=== PATIENT | male | born 1960 | race Caucasian/White ===

== ENCOUNTER → 2019-10-31 | Outpatient (CLI) | payer OTHER | END | disposition home or self-care (01) | LOC: CARD 14:41 | PROVIDERS: ATTEND Thoracic Surgery (Cardiothoracic Vascular Surgery) | DX: D38.1 Neoplasm of uncertain behavior of trachea, bronchus and lung (principal); J98.4 Other disorders of lung | CPT/HCPCS: 94060; 94726; 94729 ==

== ENCOUNTER 2019-11-07 10:03 | Inpatient (IN) | payer OTHER ==
[~2019-11-07] VITALS: Ht 175.3 cm; Wt 97.1 kg
[2019-11-07] MEDS ORDERED: LACTATED RINGERS 1,000 ML IV SCH ×2 (10:34→14:23)
[2019-11-07] MEDS ORDERED: VARE1TAB21 PO (10:37)
[2019-11-07] MEDS ORDERED: ASPRIN PO (10:37)
[2019-11-07 11:00] LABS: BASOPHILS # (AUTO) 0.11 x10^3/uL (0-0.1); BASOPHILS % (AUTO) 1 % (0-1); EOSINOPHILS % (AUTO) 14 % (1-7); LYMPHOCYTES % (AUTO) 21 % (22-44); MD NO; MEAN CORPUSCULAR HEMOGLOBIN 32.4 pg (27.5-34.5); MEAN CORPUSCULAR HGB CONC 33.3 g/dL (33.2-36.2); MEAN CORPUSCULAR VOLUME 97.2 fL (81-97); MEAN PLATELET VOLUME 7.9 fL (7.4-10.4); MONOCYTES # (AUTO) 0.67 x10^3/uL (0.2-0.8); MONOCYTES % (AUTO) 7 % (2-9); NEUTROPHILS # (AUTO) 5.54 x10^3/uL (1.8-6.8); NEUTROPHILS % (AUTO) 57 % (42-75); PLATELET COUNT 242 x10^3/uL (130-400); RED BLOOD COUNT 4.86 x10^6/uL (4.38-5.82); RED CELL DISTRIBUTION WIDTH 14.1 % (9.4-14.8)
[2019-11-07 11:08] LABS: ALBUMIN 3.4 g/dL (3.4-5.0); ANION GAP 7 mmol/L (5-15); CALCIUM 8.7 mg/dL (8.5-10.1); CHLORIDE 105 mmol/L (98-107)
[2019-11-07 11:12] LABS: ALANINE AMINOTRANSFERASE 69 U/L (12-78); ALKALINE PHOSPHATASE 106 U/L (45-117); BILIRUBIN,TOTAL 0.6 mg/dL (0.2-1.0); CREATININE 1.04 mg/dL (0.7-1.3); TOTAL PROTEIN 6.7 g/dL (6.4-8.2)
[2019-11-07] MEDS ORDERED: BUPIVACAINE/PF 0.5% ONE (12:07)
[2019-11-07] MEDS ORDERED: EPINEPHRINE 1 MG/ML, 1ML ONE (12:07)
[2019-11-07] MEDS ORDERED: MIDAZOLAM 1 MG/ML, 2ML ONE (12:29)
[2019-11-07] MEDS ORDERED: FENTANYL PF 250 MCG/5ML ONE ×2 (12:30→13:24)
[2019-11-07] MEDS ORDERED: LIDOCAINE PF 2%, 5ML ONE (12:35)
[2019-11-07] MEDS ORDERED: GLYCOPYRROLATE 0.2MG/1ML, 5ML ONE (13:24)
[2019-11-07] MEDS ORDERED: ROCURONIUM 10MG/ML,5ML ONE (13:24)
[2019-11-07] MEDS ORDERED: ONDANSETRON 2MG/ML, 2ML ONE (13:24)
[2019-11-07] MEDS ORDERED: DEXAMETHASONE 4 MG/ML, 1ML ONE (13:24)
[2019-11-07] MEDS ORDERED: NEOSTIGMINE 1 MG/ML, 10ML ONE (13:24)
[2019-11-07] MEDS ORDERED: SUCCINYLCHOLINE 20 MG/ML, 10ML ONE (13:24)
[2019-11-07] MEDS ORDERED: SUGAMMADEX 200 MG/2 ML IVPush ONE (13:24)
[2019-11-07] MEDS ORDERED: CEFAZOLIN 1,000 MG ONE (13:24)
[2019-11-07] MEDS ORDERED: PROPOFOL 10 MG/ML, 20ML ONE (13:24)
[2019-11-07] MEDS ORDERED: ACETAMINOPHEN 325 MG TABLET PO PRN (13:30)
[2019-11-07] MEDS ORDERED: MEPERIDINE/PF 25MG/ML,1ML IVPush PRN (13:30)
[2019-11-07] MEDS ORDERED: LORazepam 2 MG/ML, 1ML IVPush PRN ×2 (13:30→14:30)
[2019-11-07] MEDS ORDERED: PROMETHAZINE 25 MG SUPP PR PRN (13:30)
[2019-11-07] MEDS ORDERED: PROMETHAZINE 25 MG/ML, 1ML IV PRN (13:30)
[2019-11-07] MEDS ORDERED: ONDANSETRON ODT 8 MG PO PRN (13:30)
[2019-11-07] MEDS ORDERED: HYDROmorphone 2 MG/ML, 1ML IVPush PRN (13:30)
[2019-11-07] MEDS ORDERED: OXYcodone 5 MG/5 ML ORAL.SOL UDC PO PRN (13:30)
[2019-11-07] MEDS ORDERED: ONDANSETRON 2MG/ML, 2ML IV PRN (13:30)
[2019-11-07] MEDS ORDERED: HALOPERIDOL 5 MG/ML IV PRN (13:30)
[2019-11-07] MEDS ORDERED: FENTANYL PF 100 MCG/2ML IV PRN (13:30)
[2019-11-07] MEDS: FAMOTIDINE 20 MG/2 ML IVPush SCH (14:30)
[2019-11-07] MEDS ORDERED: DIPHENHYDRAMINE 25 MG CAPSULE PO PRN (14:30)
[2019-11-07] MEDS ORDERED: hydrALAzine 20 MG/ML, 1ML IVPush PRN (14:30)
[2019-11-07] MEDS ORDERED: ONDANSETRON 2MG/ML, 2ML IVPush PRN (14:30)
[2019-11-07] MEDS: FAMOTIDINE 20 MG TABLET PO SCH (14:30)
[2019-11-07] MEDS ORDERED: ENALAPRILAT 1.25 MG/ML, 2ML IVPush PRN (14:30)
[2019-11-07] MEDS ORDERED: LORazepam 1MG TABLET PO PRN (14:30)
[2019-11-07 15:45] VITALS: BP 126/84
[2019-11-07] MEDS: HYDROcodone/APAP 5/325 TABLET PO PRN ×2 (18:47→23:07)
[2019-11-07 20:00] VITALS: BP 113/77
[2019-11-07] MEDS: morphine SULFATE 10 MG/ML, 1ML IVPush PRN ×3 (20:10→22:26)
[2019-11-07 23:04] VITALS: BP 109/75
[2019-11-08] MEDS: FAMOTIDINE 20 MG TABLET PO SCH ×2 (02:30→15:13)
[2019-11-08] MEDS: FAMOTIDINE 20 MG/2 ML IVPush SCH ×2 (02:39→14:30)
[2019-11-08 04:00] VITALS: BP 115/79
[2019-11-08 06:56] LABS: ANION GAP 6 mmol/L (5-15); CALCIUM 8.3 mg/dL (8.5-10.1); CHLORIDE 102 mmol/L (98-107)
[2019-11-08 06:58] LABS: CREATININE 0.87 mg/dL (0.7-1.3)
[2019-11-08] MEDS: HYDROcodone/APAP 5/325 TABLET PO PRN ×5 (07:10→23:32)
[2019-11-08 08:00] VITALS: BP 109/72
[2019-11-08 09:14] LABS: MEAN CORPUSCULAR HEMOGLOBIN 32.3 pg (27.5-34.5); MEAN CORPUSCULAR HGB CONC 32.9 g/dL (33.2-36.2); MEAN CORPUSCULAR VOLUME 98.1 fL (81-97); MEAN PLATELET VOLUME 8.5 fL (7.4-10.4); PLATELET COUNT 231 x10^3/uL (130-400); RED BLOOD COUNT 4.38 x10^6/uL (4.38-5.82); RED CELL DISTRIBUTION WIDTH 14.1 % (9.4-14.8)
[2019-11-08] MEDS: ENOXAPARIN 40 MG/0.4 ML SQ SCH (09:47)
[2019-11-08 10:09] LABS: BASOPHILS # (AUTO) 0.05 x10^3/uL (0-0.1); BASOPHILS % (AUTO) 0 % (0-1); EOSINOPHILS # (AUTO) 0.04 x10^3/uL (0-0.4); EOSINOPHILS % (AUTO) 0 % (1-7); LYMPHOCYTES # (AUTO) 1.46 x10^3/uL (1-3.4); LYMPHOCYTES % (AUTO) 8 % (22-44); MD SCAN; MONOCYTES # (AUTO) 1.14 x10^3/uL (0.2-0.8); MONOCYTES % (AUTO) 6 % (2-9); NEUTROPHILS # (AUTO) 15.11 x10^3/uL (1.8-6.8); NEUTROPHILS % (AUTO) 85 % (42-75)
[2019-11-08 12:00] VITALS: BP 115/79
[2019-11-08] MEDS: morphine SULFATE 10 MG/ML, 1ML IVPush PRN (12:05)
[2019-11-08 14:35] VITALS: BP 157/69
[2019-11-08] MEDS: NICOTINE 14MG/24 HR PATCH.TD24 TD SCH (15:14)
[2019-11-08 20:34] VITALS: BP 112/75
[2019-11-09 01:49] VITALS: BP 121/81
[2019-11-09] MEDS: FAMOTIDINE 20 MG/2 ML IVPush SCH ×2 (02:30→14:30)
[2019-11-09] MEDS: FAMOTIDINE 20 MG TABLET PO SCH ×2 (02:38→19:58)
[2019-11-09] MEDS: HYDROcodone/APAP 5/325 TABLET PO PRN ×6 (03:48→21:28)
[2019-11-09 07:25] VITALS: BP 108/71
[2019-11-09] MEDS: ENOXAPARIN 40 MG/0.4 ML SQ SCH (08:43)
[2019-11-09] MEDS ORDERED: BISACODYL 10 MG SUPP PR PRN (12:30)
[2019-11-09] MEDS ORDERED: POLYETHYLENE GLYCOL 17 GM PACKET PO ONE (12:30)
[2019-11-09 12:34] VITALS: BP 127/89
[2019-11-09] MEDS: NICOTINE 14MG/24 HR PATCH.TD24 TD SCH (16:23)
[2019-11-09 20:02] VITALS: BP 106/75
[2019-11-10 01:00] VITALS: BP 110/78
[2019-11-10] MEDS: HYDROcodone/APAP 5/325 TABLET PO PRN ×3 (01:28→10:13)
[2019-11-10 05:20] VITALS: BP 125/82
[2019-11-10] MEDS: FAMOTIDINE 20 MG TABLET PO SCH (07:43)
[2019-11-10] MEDS: ENOXAPARIN 40 MG/0.4 ML SQ SCH (07:43)
[2019-11-10 07:58] VITALS: BP 134/87
[2019-11-10] MEDS ORDERED: SODIUM CHLORIDE FLUSH 10ML SYR IVF SCH (09:00)
[2019-11-10 12:38] VITALS: BP 133/72
[2019-11-10] MEDS ORDERED: HYDR-3240 PO (15:19)
[2019-11-10 16:09] VITALS: BP 120/86
[2019-11-10] MEDS: NICOTINE 14MG/24 HR PATCH.TD24 TD SCH (16:20)
== END 2019-11-10 16:32 | disposition home or self-care (01) | DRG 164 ==
LOC: ORIP 10:03 → 3WST 15:43 → 4NE 11-08 20:32 → DCLOUNGE 11-10 16:27
PROVIDERS: ADMIT Thoracic Surgery (Cardiothoracic Vascular Surgery); ATTEND Thoracic Surgery (Cardiothoracic Vascular Surgery)
PROC: 07B74ZZ Excision of Thorax Lymphatic, Percutaneous Endoscopic Approach (ICD-10-PCS; 2019-11-07)
PROC: 03HY32Z Insertion of Monitoring Device into Upper Artery, Percutaneous Approach (ICD-10-PCS; 2019-11-07)
PROC: 0BTF4ZZ Resection of Right Lower Lung Lobe, Percutaneous Endoscopic Approach (ICD-10-PCS; principal; 2019-11-07 12:30)
DX: C34.31 Malignant neoplasm of lower lobe, right bronchus or lung (principal); K62.5 Hemorrhage of anus and rectum; Z87.891 Personal history of nicotine dependence; J44.9 Chronic obstructive pulmonary disease, unspecified; Z80.1 Family history of malignant neoplasm of trachea, bronchus and lung; T81.82XA Emphysema (subcutaneous) resulting from a procedure, initial encounter; Y83.8 Other surgical procedures as the cause of abnormal reaction of the patient, or of later complication, without mention of misadventure at the time of the procedure; Y92.238 Other place in hospital as the place of occurrence of the external cause
CPT/HCPCS: 36415; J3490; S0020; 71045; 80048; 80053; 85025; 86850; 86900; 86923; 88305; 88309; 93005; G0378; J0171; J0690; J1100; J1650; J2250; J2405; J2704; J2710; J3010; C1760; J0330; J2270; J7120